=== PATIENT | male | born 1960 | race Caucasian/White ===

== ENCOUNTER → 2017-03-13 | Day surgery (SDC) | payer MEDICARE ==
[2017-03-13] VITALS (11 sets, daily range): BP systolic 114–140; BP diastolic 62–86
[2017-03-13 08:49] LABS: HEMOGLOBIN 13.2 g/dL (14.1-18.0); LYMPH # 1.5 K/mm3 (0.7-4.5); LYMPH % 22.8 % (10-50)
[2017-03-13 08:57] LABS: BUN 6 mg/dL (7-18)
[2017-03-13 08:58] LABS: GFR (ESTIMATED) 101 ML/MIN (>60)
--- NOTE | 2017-03-13 14:11 | RADIOLOGY REPORT PS360 ---
CARDIAC CATHETERIZATION DATE OF CATHETERIZATION:03/13/2017 12:19 PM PROCEDURES: 1. Left heart catheterization 2. Left ventriculogram 3. Selective coronary angiogram 4. Selective engagement left internal mammary artery 5. Selective engagement of the saphenous vein graft the circumflex artery 6. Selective engagement of the saphenous vein graft to the diagonal artery 7. Angioplasty to the right coronary artery INDICATION FOR TEST: 1. Angina pectoris class IV 2. Coronary artery disease 3. History of coronary bypass grafting Informed consent was obtained prior to the procedure. COMPLICATIONS: None ESTIMATED BLOOD LOSS: Less than 10 ml. TECHNIQUE: One percent lidocaine was used to anesthetize the right groin. The right femoral artery was accessed via the Seldinger technique. A 4-Scottish sheath was placed in the right femoral artery. The JL-4 and JR-4 catheter was also used to perform left heart catheterization and left ventriculography. At the end of the diagnostic procedure 4 Scottish sheath was exchanged for a 6 Scottish sheath and 8000 units of heparin was administered intravenously to give an ACT 264 seconds. An additional 2000 units of heparin was then given. The JR4 guide catheter was used intubate the right coronary artery and a BMW wire was placed distally. A 2.5 x 10 mm balloon was deployed at 22 shanta for 90 seconds reducing the stenosis to 10% excellent antegrade results were obtained with TAMIKO-3 flow down the vessel before and after the procedure. The closing ACT was 379 seconds. At the end of the procedure the apparatus was removed the groin is reprepped closure changed sheath was removed good hemostasis was achieved using Perclose device patient transferred to the postop holding area in stable condition. ANGIOGRAPHIC RESULTS: 1. The left main artery normal 2. The left anterior descending artery ostially occluded 3. The circumflex artery is nondominant and has stents in the proximal segment which has 30-40% in-stent restenosis 4. The right coronary artery is a dominant vessel and has proximal 30% stenoses and mid vessel 40-50% stenosis and a distal 50% stenosis and then a focal 90% in-stent restenotic lesion in the large posterior lateral ventricular branch. 5. The RUIZ ventriculogram reveals mild reduction at 50% 6. The left ventricular end-diastolic pressure 10 mmHg 7. The AVALOS graft to the LAD is widely patent 8. The saphenous vein graft to the circumflex artery is widely patent 9. The saphenous vein graft to the diagonal artery is ostially occluded IMPRESSION: 1. Severe in-stent restenosis in the large right coronary artery is unbypassed 2. Successful angioplasty of the right coronary artery 90% stenosis reduced to 10% with POBA 3. Mild ejection fraction 4. Normal left ventricular end-diastolic pressure PLAN: 1. Aspirin Plavix 2. Risk factor modification 3. Tobacco cessation 4. Cardiac rehabilitation
== END ==
LOC: CATHLAB 07:29
PROVIDERS: Internal Medicine
PROC: 02703ZZ Dilation of Coronary Artery, One Artery, Percutaneous Approach (ICD-10-PCS; 2017-03-13)
PROC: B2131ZZ Fluoroscopy of Multiple Coronary Artery Bypass Grafts using Low Osmolar Contrast (ICD-10-PCS; 2017-03-13)
PROC: B2181ZZ Fluoroscopy of Left Internal Mammary Bypass Graft using Low Osmolar Contrast (ICD-10-PCS; 2017-03-13)
PROC: B2151ZZ Fluoroscopy of Left Heart using Low Osmolar Contrast (ICD-10-PCS; 2017-03-13)
PROC: 4A023N7 Measurement of Cardiac Sampling and Pressure, Left Heart, Percutaneous Approach (ICD-10-PCS; principal; 2017-03-13 12:45)
DX: I25.119 Atherosclerotic heart disease of native coronary artery with unspecified angina pectoris (principal); Z95.1 Presence of aortocoronary bypass graft
CPT/HCPCS: C1725; C1760; C1769; C1894; J1644; J2405; Q9967